=== PATIENT | male | born 1985 | race African-American/Black ===

== ENCOUNTER 2025-06-07 11:51 | Emergency (ER) | payer OTHER ==
[~2025-06-07] VITALS: Ht 167.6 cm; Wt 89.5 kg
[2025-06-07] MEDS ORDERED: ACET1TAB55 PO (12:24)
[2025-06-07] MEDS: KETOROLAC 30 MG/ML 1 ML VIAL IV ONE (13:30)
[2025-06-07] MEDS: METHOCARBAMOL 1,000 MG/10 ML VIAL IV ONE (13:31)
[2025-06-07] MEDS ORDERED: NAPR-837 PO (14:06)
[2025-06-07] MEDS ORDERED: METH-1164 PO (14:06)
[2025-06-07 14:10] VITALS: BP 127/75; TEMP 97.2; O2SAT 100
== END 2025-06-07 14:13 | disposition home or self-care (01) ==
LOC: M ED 11:51
DX: M54.32 Sciatica, left side (principal); F10.10 Alcohol abuse, uncomplicated; Z88.8 Allergy status to other drugs, medicaments and biological substances; Z79.1 Long term (current) use of non-steroidal anti-inflammatories (NSAID); Z79.899 Other long term (current) drug therapy
CPT/HCPCS: 96374; 96375; 99284; J1885; J2800

== ENCOUNTER 2025-07-11 14:49 | Emergency (ER) | payer OTHER ==
[~2025-07-11] VITALS: Ht 167.6 cm; Wt 89.6 kg
[~2025-07-11 14:49] MED LIST: ACET1TAB55 PO; METH-1164 PO; NAPR-837 PO
[2025-07-11] MEDS ORDERED: PRED10TA2 PO (17:33)
[2025-07-11] MEDS ORDERED: GABA-1172 PO (17:33)
[2025-07-11 17:40] VITALS: BP 112/72; TEMP 97.5; O2SAT 97
== END 2025-07-11 17:44 | disposition home or self-care (01) ==
LOC: M ED 14:49
DX: M54.32 Sciatica, left side (principal); Z79.1 Long term (current) use of non-steroidal anti-inflammatories (NSAID); Z79.52 Long term (current) use of systemic steroids; Z79.899 Other long term (current) drug therapy